=== PATIENT | female | born 1975 | race Caucasian/White ===

== ENCOUNTER 2018-10-02 15:19 | Emergency (ER) | payer OTHER ==
[~2018-10-02] VITALS: Ht 162.6 cm; Wt 93.4 kg
[2018-10-02] MEDS ORDERED: BIRTH CONTROL (15:28)
[2018-10-02 16:21] VITALS: BP 119/69
== END 2018-10-02 16:21 | disposition home or self-care (01) ==
LOC: M.ERS 15:19
DX: S61.412A Laceration without foreign body of left hand, initial encounter (principal); W26.0XXA Contact with knife, initial encounter; Y92.89 Other specified places as the place of occurrence of the external cause; Y93.89 Activity, other specified; Y99.8 Other external cause status

== ENCOUNTER 2019-01-18 20:56 | Emergency (ER) | payer OTHER ==
[~2019-01-18] VITALS: Ht 162.6 cm; Wt 89.8 kg
[~2019-01-18 20:56] MED LIST: BIRTH CONTROL
[2019-01-18 21:47] LABS: CALCIUM 9.4 mg/dL (8.5-10.1); CREATININE 0.6 mg/dL (0.6-1.3); POTASSIUM 3.8 mmol/L (3.5-5.1)
[2019-01-18 22:42] VITALS: BP 137/74
== END 2019-01-18 22:43 | disposition home or self-care (01) ==
LOC: M.ERS 20:56
PROVIDERS: Emergency Medicine Emergency Medical Services
DX: H53.9 Unspecified visual disturbance (principal); I10 Essential (primary) hypertension; J45.909 Unspecified asthma, uncomplicated

== ENCOUNTER → 2021-07-10 | Outpatient (CLI) | payer OTHER | LOC: M.ULTRA 15:30 | DX: I82.811 Embolism and thrombosis of superficial veins of right lower extremity (principal) ==